=== PATIENT | female | born 1950 | race Caucasian/White ===

== ENCOUNTER 2021-12-12 08:54 | Emergency (ER) | payer MEDICARE, SELFPAY ==
[2021-12-12 09:12] VITALS: BP 181/83; PULSE 65; RESP 16; TEMP 36.3; O2SAT 99
--- NOTE | 2021-12-12 09:33 | ED.EYEPROB ---
HPI - Eye Problem General Chief complaint: Eye Problems Stated complaint: Right Eye Pain Time Seen by Provider: 12/12/21 09:30 Source: patient and RN notes reviewed Mode of arrival: ambulatory Limitations: no limitations History of Present Illness HPI Narrative: 71-year-old female presents with concern for right eye irritation, redness, copious drainage. She woke up this morning with her eye crusted shut. She reports its been draining and irritated since then. She reports she felt like she may have had an eyelash in the eye. She denies any other injury or trauma to the eye. chief complaint: eye redness Related Data Home Medications Medication Instructions Recorded Confirmed atorvastatin 10 mg tablet 10 mg PO DAILY 12/12/21 12/12/21 carvedilol 25 mg tablet 25 mg PO DAILY 12/12/21 12/12/21 losartan 50 mg tablet 50 mg PO DAILY 12/12/21 12/12/21 Allergies Allergy/AdvReac Type Severity Reaction Status Date / Time No Known Allergies Allergy Verified 12/12/21 09:31 Review of Systems Review of Systems: CONSTITUTIONAL: Denies malaise, chills, sweats, or fever. EYES: Denies visual changes. Reports right eye redness, irritation, copious discharge. ENT: Denies rhinorrhea, congestion, sinus pain, otalgia or sore throat. SKIN: Denies rash or itching. NEUROLOGIC: Denies numbness, weakness, or headache. PSYCHIATRIC: Denies anxiety or depression. All systems reviewed & are unremarkable except as noted in HPI and below PMFSH Comments At time of signature, agree with nursing past medical, surgical, social and family history. There is no relevant family history pertinent to the presenting complaint Exam Narrative: GENERAL: Well-appearing, well-nourished, and in no acute distress. HEAD: Normocephalic, atraumatic. EYES: PERRLA, left sclera clear conjunctivae clear and EOMI. No nystagmus. Right sclera and conjunctivae injected. Right upper and lower eyelid mildly edematous. upper and lower eyelid unremarkable, no periorbital edema noted ENT: Nares clear, turbinates pink, no rhinorrhea or epistaxis. Mucous membranes moist. NECK: Supple. CHEST: No respiratory distress. Speaks in full sentences. HEART: Regular rate and rhythm. SKIN: Warm, dry, no visible rash. NEURO: Alert and oriented x3. PSYCH: Normal mood and affect Course Course Emergency Course: Patient is aware of diagnosis, understands and agrees to treatment plan. Anticipatory guidance given. Patient agrees to follow-up as directed and is aware of reasons to seek care at the emergency department. Portions of this record may have been created with voice recognition software Level of Care: Express Care Visit Vital Signs Vital signs: Vital Signs Temperature 97.3 F L 12/12/21 09:12 Pulse Rate 65 12/12/21 09:12 Respiratory Rate 16 12/12/21 09:12 Blood Pressure 181/83 H 12/12/21 09:12 Pulse Oximetry 99 12/12/21 09:12 Oxygen Delivery Room Air 12/12/21 09:12 Temperature 97.3 F L 12/12/21 09:12 Pulse Rate 65 12/12/21 09:12 Respiratory Rate 16 12/12/21 09:12 Blood Pressure 181/83 H 12/12/21 09:12 Pulse Oximetry 99 12/12/21 09:12 Oxygen Delivery Room Air 12/12/21 09:12 Reviewed. MDM - Eye Problem MDM Narrative Medical decision making narrative: Consideration of the following conditions may be warranted for the presenting problem, they are not final diagnoses: Bacterial conjunctivitis, allergic conjunctivitis, viral conjunctivitis, foreign body, blepharitis, chalazion, hordeolum, corneal abrasion, preseptal cellulitis, orbital cellulitis. No evidence of proptosis, ophthalmoplegia, vision loss, pain with eye movement. Exam findings show no acute concerns or changes; patient is non-toxic appearing and is in no distress. Patient is appropriate for outpatient treatment and follow-up. Critical Care Time Critical Care Time Critical Care Time: No Discharge Plan Discharge Clinical Impression: Bacterial conjunctivitis
== END 2021-12-12 09:51 | disposition home or self-care (01) ==
PROVIDERS: Emergency Provider Nurse Practitioner
DX: H10.9 Unspecified conjunctivitis (principal); E78.00 Pure hypercholesterolemia, unspecified; I10 Essential (primary) hypertension; Z86.16 Personal history of COVID-19
CPT/HCPCS: 99213; A9270; G0463